=== PATIENT | female | born 1925 | race Caucasian/White ===

== ENCOUNTER 2017-02-16 13:30 | Inpatient (IN) | payer MEDICARE, OTHER ==
[~2017-02-16] VITALS: Ht 167.6 cm; Wt 82.1 kg
[2017-02-16] MEDS ORDERED: VALS80TA3 PO (13:51)
[2017-02-16] MEDS ORDERED: LEVO137T3 PO (13:51)
[2017-02-16] MEDS ORDERED: IBUP200C5 PO (13:51)
[2017-02-16] MEDS ORDERED: CHOL2000 PO (13:51)
[2017-02-16] MEDS ORDERED: FOLI0.4T2 PO (13:51)
[2017-02-16] MEDS ORDERED: HYDR25CA94 PO (13:51)
[2017-02-16] MEDS ORDERED: FENO145T13 PO (13:51)
[2017-02-16] MEDS ORDERED: GLIP10TA13 PO (13:51)
[2017-02-16] MEDS ORDERED: WARF4TAB7 PO (13:51)
[2017-02-16] MEDS ORDERED: METO25TA35 PO (13:51)
[2017-02-16] MEDS ORDERED: ATOR40TA78 PO (13:51)
[2017-02-16] MEDS ORDERED: HYDR12.53 PO (13:51)
[2017-02-16] MEDS ORDERED: OMEP-110 PO (13:51)
[2017-02-16] MEDS ORDERED: [UNRECOGNIZED DRUG - OTHER] PO (13:51)
[2017-02-16] MEDS ORDERED: AMLO5TAB2 PO (13:51)
[2017-02-16] MEDS ORDERED: ALLO300T PO (13:51)
[2017-02-16] MEDS ORDERED: PANTOPRAZOLE 80 MG in SODIUM CHLORIDE 0.9% 100 ML IV SCH ×2 (13:55→16:30)
[2017-02-16] MEDS ORDERED: PANTOPRAZOLE 80 MG in SODIUM CHLORIDE 0.9% 50 ML IVPB ONE (13:55)
[2017-02-16] MEDS ORDERED: SODIUM CHLORIDE FLUSH 10ML SYR IVF ONE (14:00)
[2017-02-16 14:31] LABS: HEMATOCRIT 29.1 % (34.6-47.8); HEMOGLOBIN 9.9 g/dL (11.7-16.4); WHITE BLOOD COUNT 7.2 x10^3/uL (3.4-10)
[2017-02-16 14:43] LABS: BLOOD UREA NITROGEN 58 mg/dL (7-18)
[2017-02-16 14:51] LABS: IS PT STATUS REG ER OR PRE ER? YES
[2017-02-16] MEDS ORDERED: MORPHINE SULFATE 4 MG/ML, 1ML IVPush PRN (16:30)
[2017-02-16] MEDS ORDERED: ONDANSETRON ODT 4 MG PO PRN (16:30)
[2017-02-16] MEDS ORDERED: ONDANSETRON 2MG/ML, 2ML IVPush PRN (16:30)
[2017-02-16] MEDS ORDERED: PHARMACY MAY ADJ FOR RENAL FX MC PRN (16:30)
[2017-02-16] MEDS: INSULIN ASPART 100 UNITS/ML, PEN SQ-INSULIN SCH ×2 (18:00→20:58)
[2017-02-16 21:09] LABS: HEMATOCRIT 28.8 % (34.6-47.8); HEMOGLOBIN 9.8 g/dL (11.7-16.4)
[2017-02-16 21:27] LABS: IS PT STATUS REG ER OR PRE ER? YES
[2017-02-16 22:03] VITALS: BP 163/51
[2017-02-17] MEDS: METOPROLOL TARTRATE 25 MG TABLET PO SCH ×3 (00:43→21:17)
[2017-02-17] MEDS: ATORVASTATIN 40 MG TABLET PO SCH ×2 (00:43→21:17)
[2017-02-17 01:14] VITALS: BP 157/66
[2017-02-17] MEDS: PANTOPRAZOLE 80 MG in SODIUM CHLORIDE 0.9% 100 ML IV SCH ×2 (02:33→16:46)
[2017-02-17 06:31] VITALS: BP 150/69
[2017-02-17 06:32] LABS: HEMATOCRIT 28.8 % (34.6-47.8); HEMOGLOBIN 9.6 g/dL (11.7-16.4); WHITE BLOOD COUNT 8.9 x10^3/uL (3.4-10)
[2017-02-17 06:42] LABS: BLOOD UREA NITROGEN 57 mg/dL (7-18)
[2017-02-17 06:45] LABS: ASPARTATE AMINO TRANSFERASE 34 U/L (15-37)
[2017-02-17 06:48] LABS: IS PT STATUS REG ER OR PRE ER? NO
[2017-02-17] MEDS: INSULIN ASPART 100 UNITS/ML, PEN SQ-INSULIN SCH ×4 (07:00→20:32)
[2017-02-17] MEDS: CHOLECALCIFEROL 1,000 UNIT TABLET PO SCH (09:00)
[2017-02-17] MEDS: ALLOPURINOL 300 MG TABLET PO SCH (09:00)
[2017-02-17] MEDS: FENOFIBRATE 145 MG TABLET PO SCH (09:00)
[2017-02-17] MEDS: FOLIC ACID 1 MG TABLET PO SCH (09:00)
[2017-02-17] MEDS ORDERED: AMLODIPINE 5 MG TABLET PO SCH ×2 (09:00→21:00)
[2017-02-17] MEDS ORDERED: VALSARTAN 80 MG TABLET PO SCH (09:00)
[2017-02-17] MEDS ORDERED: LEVOTHYROXINE 137 MCG TABLET PO SCH (09:00)
[2017-02-17 09:48] LABS: IS PT STATUS REG ER OR PRE ER? NO
[2017-02-17] MEDS ORDERED: PROPOFOL 10 MG/ML, 20ML ONE (12:15)
[2017-02-17 12:30] LABS: HEMATOCRIT 28.3 % (34.6-47.8); HEMOGLOBIN 9.5 g/dL (11.7-16.4)
[2017-02-17] MEDS ORDERED: OXYcodone 5 MG/5 ML ORAL.SOL UDC PO PRN (13:00)
[2017-02-17] MEDS ORDERED: LABETALOL 5MG/ML, 20ML IV PRN (13:00)
[2017-02-17] MEDS ORDERED: hydrALAzine 20 MG/ML, 1ML IV PRN ×2 (13:00)
[2017-02-17] MEDS ORDERED: ONDANSETRON 2MG/ML, 2ML IVPush PRN (13:00)
[2017-02-17] MEDS ORDERED: ALBUTEROL/IPRATROPIUM 2.5MG/0.5MG, 3 ML NPPB PRN (13:00)
[2017-02-17] MEDS ORDERED: FENTANYL PF 100 MCG/2ML IV PRN (13:00)
[2017-02-17] MEDS: D5%-0.45% NACL 1,000 ML IV SCH (14:37)
[2017-02-17 15:52] VITALS: BP_SYST 111; BP_SYST 120; BP_SYST 148; BP_DIAS 53; BP_DIAS 65; BP_DIAS 68
[2017-02-17 17:09] LABS: HEMATOCRIT 26.8 % (34.6-47.8); HEMOGLOBIN 8.9 g/dL (11.7-16.4)
[2017-02-17 20:37] VITALS: BP 159/61
[2017-02-17 21:25] LABS: HEMATOCRIT 25.9 % (34.6-47.8); HEMOGLOBIN 8.7 g/dL (11.7-16.4)
[2017-02-18] VITALS (7 sets, daily range): BP systolic 107–176; BP diastolic 51–65
[2017-02-18] MEDS: PANTOPRAZOLE 80 MG in SODIUM CHLORIDE 0.9% 100 ML IV SCH ×2 (03:57→16:43)
[2017-02-18] MEDS: D5%-0.45% NACL 1,000 ML IV SCH (03:57)
[2017-02-18] MEDS: LEVOTHYROXINE 137 MCG TABLET PO SCH (05:51)
[2017-02-18 06:01] LABS: HEMATOCRIT 26.1 % (34.6-47.8); HEMOGLOBIN 8.8 g/dL (11.7-16.4); WHITE BLOOD COUNT 7.6 x10^3/uL (3.4-10)
[2017-02-18 06:13] LABS: BLOOD UREA NITROGEN 48 mg/dL (7-18)
[2017-02-18 08:32] LABS: ASPARTATE AMINO TRANSFERASE 38 U/L (15-37)
[2017-02-18] MEDS: INSULIN ASPART 100 UNITS/ML, PEN SQ-INSULIN SCH ×4 (10:09→22:11)
[2017-02-18] MEDS: OMEPRAZOLE 20 MG CAPSULE.DR PO SCH (10:14)
[2017-02-18] MEDS: CHOLECALCIFEROL 1,000 UNIT TABLET PO SCH (10:14)
[2017-02-18] MEDS: CARVEDILOL 6.25 MG TABLET PO SCH ×2 (10:14→16:44)
[2017-02-18] MEDS: FOLIC ACID 1 MG TABLET PO SCH (10:14)
[2017-02-18] MEDS: FENOFIBRATE 145 MG TABLET PO SCH (10:15)
[2017-02-18] MEDS: ALLOPURINOL 300 MG TABLET PO SCH (10:15)
[2017-02-18 11:26] LABS: HEMATOCRIT 27.2 % (34.6-47.8)
[2017-02-18] MEDS ORDERED: CARV6.2512 PO (13:33)
[2017-02-18] MEDS ORDERED: AMLODIPINE 5 MG TABLET PO SCH (21:00)
[2017-02-18 21:21] LABS: HEMATOCRIT 27.5 % (34.6-47.8); HEMOGLOBIN 9.1 g/dL (11.7-16.4)
[2017-02-18] MEDS: ATORVASTATIN 40 MG TABLET PO SCH (22:10)
[2017-02-19 01:00] VITALS: BP 106/61
[2017-02-19] MEDS: PANTOPRAZOLE 80 MG in SODIUM CHLORIDE 0.9% 100 ML IV SCH (04:00)
[2017-02-19] MEDS: CARVEDILOL 6.25 MG TABLET PO SCH (06:00)
[2017-02-19 06:11] LABS: HEMATOCRIT 25.1 % (34.6-47.8); HEMOGLOBIN 8.4 g/dL (11.7-16.4)
[2017-02-19] MEDS: LEVOTHYROXINE 137 MCG TABLET PO SCH (06:33)
[2017-02-19] MEDS: INSULIN ASPART 100 UNITS/ML, PEN SQ-INSULIN SCH ×4 (07:00→20:57)
[2017-02-19 08:25] VITALS: BP 102/38
[2017-02-19] MEDS: SODIUM CHLORIDE 0.9% 1,000 ML IV SCH ×2 (08:58→15:35)
[2017-02-19] MEDS ORDERED: CEFAZOLIN PMX 1GM/50ML 50 ML IVPB ONE (09:00)
[2017-02-19] MEDS: FOLIC ACID 1 MG TABLET PO SCH (09:31)
[2017-02-19] MEDS: FENOFIBRATE 145 MG TABLET PO SCH (09:31)
[2017-02-19] MEDS: OMEPRAZOLE 20 MG CAPSULE.DR PO SCH (09:32)
[2017-02-19] MEDS: ALLOPURINOL 100 MG TABLET PO SCH (09:32)
[2017-02-19] MEDS: CHOLECALCIFEROL 1,000 UNIT TABLET PO SCH (09:32)
[2017-02-19 11:09] LABS: HEMATOCRIT 26.7 % (34.6-47.8)
[2017-02-19 14:06] VITALS: BP 118/60
[2017-02-19 15:47] LABS: HEMATOCRIT 26.8 % (34.6-47.8)
[2017-02-19 18:56] VITALS: BP 166/52
[2017-02-19] MEDS: ATORVASTATIN 40 MG TABLET PO SCH (20:57)
[2017-02-19 21:18] LABS: HEMATOCRIT 27.3 % (34.6-47.8); HEMOGLOBIN 9.1 g/dL (11.7-16.4)
[2017-02-20 00:25] VITALS: BP 112/46
[2017-02-20] MEDS: SODIUM CHLORIDE 0.9% 1,000 ML IV SCH ×4 (00:58→23:55)
[2017-02-20] MEDS: LEVOTHYROXINE 137 MCG TABLET PO SCH (04:55)
[2017-02-20 05:20] LABS: BLOOD UREA NITROGEN 52 mg/dL (7-18)
[2017-02-20 06:10] LABS: HEMATOCRIT 26.9 % (34.6-47.8); WHITE BLOOD COUNT 8.1 x10^3/uL (3.4-10)
[2017-02-20] MEDS: INSULIN ASPART 100 UNITS/ML, PEN SQ-INSULIN SCH ×4 (07:00→20:22)
[2017-02-20] MEDS: OMEPRAZOLE 20 MG CAPSULE.DR PO SCH (07:30)
[2017-02-20] MEDS ORDERED: FENTANYL PF 100 MCG/2ML ONE (07:51)
[2017-02-20] MEDS ORDERED: MIDAZOLAM 1 MG/ML, 5ML ONE (07:51)
[2017-02-20] MEDS ORDERED: LIDOCAINE 2%, 20ML ONE (07:52)
[2017-02-20] MEDS ORDERED: CEFAZOLIN 1,000 MG ONE (07:52)
[2017-02-20] MEDS ORDERED: CEFAZOLIN PMX 1GM/50ML 50 ML ONE (07:52)
[2017-02-20 09:00] VITALS: BP 149/75
[2017-02-20] MEDS: SODIUM CHLORIDE FLUSH 10ML SYR IVF SCH ×2 (09:00→20:23)
[2017-02-20] MEDS: FOLIC ACID 1 MG TABLET PO SCH (09:00)
[2017-02-20] MEDS: ALLOPURINOL 100 MG TABLET PO SCH (09:00)
[2017-02-20] MEDS ORDERED: ZOLPIDEM 5MG TABLET PO PRN (09:00)
[2017-02-20] MEDS: CHOLECALCIFEROL 1,000 UNIT TABLET PO SCH (09:00)
[2017-02-20 11:12] LABS: HEMATOCRIT 26.8 % (34.6-47.8); HEMOGLOBIN 8.9 g/dL (11.7-16.4)
[2017-02-20 14:00] VITALS: BP 162/74
[2017-02-20 18:41] VITALS: BP 158/54
[2017-02-20] MEDS: ATORVASTATIN 40 MG TABLET PO SCH (20:23)
[2017-02-20] MEDS: ACETAMINOPHEN 325 MG TABLET PO PRN (23:37)
[2017-02-21 01:59] VITALS: BP 153/63
[2017-02-21] MEDS: LEVOTHYROXINE 137 MCG TABLET PO SCH (04:58)
[2017-02-21] MEDS: ACETAMINOPHEN 325 MG TABLET PO PRN ×2 (04:58→22:28)
[2017-02-21 05:50] LABS: BLOOD UREA NITROGEN 40 mg/dL (7-18)
[2017-02-21] MEDS: INSULIN ASPART 100 UNITS/ML, PEN SQ-INSULIN SCH ×4 (07:00→20:48)
[2017-02-21] MEDS ORDERED: CEFAZOLIN PMX 1GM/50ML 50 ML IVPB ONE (08:00)
[2017-02-21] MEDS: SODIUM CHLORIDE 0.9% 1,000 ML IV SCH (08:58)
[2017-02-21 09:05] VITALS: BP 150/66
[2017-02-21] MEDS: OMEPRAZOLE 20 MG CAPSULE.DR PO SCH (09:13)
[2017-02-21] MEDS: FOLIC ACID 1 MG TABLET PO SCH (09:13)
[2017-02-21] MEDS: ALLOPURINOL 100 MG TABLET PO SCH (09:13)
[2017-02-21] MEDS: CHOLECALCIFEROL 1,000 UNIT TABLET PO SCH (09:13)
[2017-02-21] MEDS: SODIUM CHLORIDE FLUSH 10ML SYR IVF SCH ×2 (09:14→20:48)
[2017-02-21 14:07] VITALS: BP 157/124
[2017-02-21] MEDS: METOPROLOL TARTRATE 25 MG TABLET PO SCH (17:34)
[2017-02-21 17:35] VITALS: BP 148/65
[2017-02-21 17:52] LABS: PATH.CAST-FLAG NOT PRESENT; SPERM-FLAG NOT PRESENT; SRC-FLAG NOT PRESENT; XTAL-FLAG NOT PRESENT; YLC-FLAG NOT PRESENT
[2017-02-21 19:25] VITALS: BP 149/66
[2017-02-21] MEDS: ATORVASTATIN 40 MG TABLET PO SCH (20:49)
[2017-02-22 01:50] VITALS: BP 116/71
[2017-02-22] MEDS: METOPROLOL TARTRATE 25 MG TABLET PO SCH (05:14)
[2017-02-22] MEDS: LEVOTHYROXINE 137 MCG TABLET PO SCH (05:15)
[2017-02-22 05:41] LABS: BLOOD UREA NITROGEN 36 mg/dL (7-18)
[2017-02-22 05:44] LABS: TOTAL IRON BINDING CAPACITY 287 mcg/dL (250-450)
[2017-02-22] MEDS: INSULIN ASPART 100 UNITS/ML, PEN SQ-INSULIN SCH ×2 (07:00→11:41)
[2017-02-22] MEDS ORDERED: DOCU-131 PO (07:35)
[2017-02-22] MEDS ORDERED: ASCO500T6 PO (07:35)
[2017-02-22] MEDS ORDERED: FERR-36 PO (07:35)
[2017-02-22 08:00] VITALS: BP 145/78
[2017-02-22] MEDS ORDERED: FERROUS SULFATE 325 MG TABLET PO SCH (08:00)
[2017-02-22] MEDS ORDERED: ASCORBIC ACID 500 MG TABLET PO SCH (08:00)
[2017-02-22] MEDS: OMEPRAZOLE 20 MG CAPSULE.DR PO SCH (08:20)
[2017-02-22] MEDS: ALLOPURINOL 100 MG TABLET PO SCH (08:20)
[2017-02-22] MEDS: CHOLECALCIFEROL 1,000 UNIT TABLET PO SCH (08:20)
[2017-02-22] MEDS: SODIUM CHLORIDE FLUSH 10ML SYR IVF SCH (08:21)
[2017-02-22] MEDS: FOLIC ACID 1 MG TABLET PO SCH (08:21)
[2017-02-22] MEDS ORDERED: DOCUSATE 100 MG CAPSULE PO SCH (09:00)
== END 2017-02-22 13:50 | disposition home or self-care (01) | DRG 242 ==
LOC: OR 16:02 → EDIP 16:03 → OR 16:24 → 4EST 21:40 → 4WST 02-17 22:14 → 5SO 02-18 22:51 → DCLOUNGE 02-22 12:45
PROVIDERS: ADMIT Hospitalist; ATTEND Internal Medicine
PROC: 0DB68ZX Excision of Stomach, Via Natural or Artificial Opening Endoscopic, Diagnostic (ICD-10-PCS; principal; 2017-02-17 12:00)
PROC: 0JH606Z Insertion of Pacemaker, Dual Chamber into Chest Subcutaneous Tissue and Fascia, Open Approach (ICD-10-PCS; 2017-02-20)
PROC: 02HK3JZ Insertion of Pacemaker Lead into Right Ventricle, Percutaneous Approach (ICD-10-PCS; 2017-02-20)
PROC: 02H63JZ Insertion of Pacemaker Lead into Right Atrium, Percutaneous Approach (ICD-10-PCS; 2017-02-20)
DX: I44.0 Atrioventricular block, first degree (principal); K29.71 Gastritis, unspecified, with bleeding; N17.0 Acute kidney failure with tubular necrosis; E11.21 Type 2 diabetes mellitus with diabetic nephropathy; D68.59 Other primary thrombophilia; E11.22 Type 2 diabetes mellitus with diabetic chronic kidney disease; D62 Acute posthemorrhagic anemia; E03.9 Hypothyroidism, unspecified; E78.5 Hyperlipidemia, unspecified; Z66 Do not resuscitate; D50.9 Iron deficiency anemia, unspecified; D63.8 Anemia in other chronic diseases classified elsewhere; E66.9 Obesity, unspecified; I49.5 Sick sinus syndrome; Z68.29 Body mass index [BMI] 29.0-29.9, adult; I13.10 Hypertensive heart and chronic kidney disease without heart failure, with stage 1 through stage 4 chronic kidney disease, or unspecified chronic kidney disease; Z96.651 Presence of right artificial knee joint; K29.50 Unspecified chronic gastritis without bleeding; N18.9 Chronic kidney disease, unspecified; Z79.01 Long term (current) use of anticoagulants; Z79.4 Long term (current) use of insulin; Z79.84 Long term (current) use of oral hypoglycemic drugs; Z86.711 Personal history of pulmonary embolism; Z86.718 Personal history of other venous thrombosis and embolism; Z87.11 Personal history of peptic ulcer disease; Z87.891 Personal history of nicotine dependence; Z90.710 Acquired absence of both cervix and uterus; Z95.0 Presence of cardiac pacemaker; Z90.49 Acquired absence of other specified parts of digestive tract
CPT/HCPCS: 36415; 71010; 76770; 80048; 80053; 80061; 81001; 82040; 82436; 82550; 82570; 82962; 83540; 83550; 84133; 84300; 84484; 85014; 85018; 85025; 85610; 86677; 86850; 86900; 88305; 93005; 93306; 96365; J0690; J1815; J2250; J2704; J3010; J3490; C9113; J7030

== ENCOUNTER 2017-03-10 13:18 | Inpatient (IN) | payer MEDICARE ==
[~2017-03-10] VITALS: Ht 162.6 cm; Wt 83.8 kg
[~2017-03-10 13:18] MED LIST: ALLO300T PO; AMLO5TAB2 PO; ASCO500T6 PO; ATOR40TA78 PO; CARV6.2512 PO; CHOL2000 PO; DOCU-131 PO; FENO145T13 PO; FERR-36 PO; FOLI0.4T2 PO; GLIP10TA13 PO; HYDR12.53 PO; HYDR25CA94 PO; IBUP200C5 PO; LEVO137T3 PO; METO25TA35 PO; OMEP-110 PO; VALS80TA3 PO; WARF4TAB7 PO; [UNRECOGNIZED DRUG - OTHER] PO
[2017-03-10 15:15] VITALS: BP 141/71
[2017-03-10] MEDS ORDERED: FUROSEMIDE 20 MG/2 ML IV ONE (17:00)
[2017-03-10] MEDS ORDERED: POLYETHYLENE GLYCOL 17 GM PACKET PO PRN (17:30)
[2017-03-10] MEDS ORDERED: PLEASE ENTER HEIGHT AND WEIGHT MC SCH (17:30)
[2017-03-10] MEDS ORDERED: BISACODYL 10 MG SUPP PR PRN (17:30)
[2017-03-10] MEDS ORDERED: HYDROcodone/APAP 5/325 TABLET PO PRN (17:30)
[2017-03-10] MEDS ORDERED: NITROGLYCERIN 0.4 MG/SPRAY SL PRN (17:30)
[2017-03-10] MEDS ORDERED: hydrALAzine 20 MG/ML, 1ML IVPush PRN (17:30)
[2017-03-10] MEDS ORDERED: ONDANSETRON 2MG/ML, 2ML IVPush PRN (17:30)
[2017-03-10] MEDS ORDERED: ALBUTEROL SULFATE 2.5 MG/3 ML NPPB PRN (17:30)
[2017-03-10] MEDS ORDERED: ACETAMINOPHEN 325 MG TABLET PO PRN (17:30)
[2017-03-10] MEDS ORDERED: ONDANSETRON ODT 4 MG PO PRN (17:30)
[2017-03-10 20:01] VITALS: BP 131/73
[2017-03-10] MEDS: CEFTRIAXONE PMX 1GM/50ML 50 ML IV SCH (21:56)
[2017-03-10] MEDS: DOCUSATE 100 MG CAPSULE PO SCH (21:56)
[2017-03-10] MEDS: CARVEDILOL 6.25 MG TABLET PO SCH (21:56)
[2017-03-10] MEDS: ATORVASTATIN 40 MG TABLET PO SCH (21:56)
[2017-03-10] MEDS: HEPARIN 5,000 UNITS/ML, 1ML SQ SCH (21:57)
[2017-03-10] MEDS: methylPREDNISolone SOD SUCC 125 MG/2 ML IVPush SCH (21:57)
[2017-03-10 22:44] LABS: PATH.CAST-FLAG NOT PRESENT; SPERM-FLAG NOT PRESENT; SRC-FLAG NOT PRESENT; XTAL-FLAG NOT PRESENT; YLC-FLAG NOT PRESENT
[2017-03-11 00:30] VITALS: BP_SYST 134; BP_SYST 56; BP_DIAS 56
[2017-03-11] MEDS: methylPREDNISolone SOD SUCC 125 MG/2 ML IVPush SCH ×3 (03:08→17:39)
[2017-03-11 05:19] LABS: HEMATOCRIT 31.7 % (34.6-47.8); HEMOGLOBIN 10.2 g/dL (11.7-16.4); WHITE BLOOD COUNT 5.9 x10^3/uL (3.4-10)
[2017-03-11 05:38] LABS: ASPARTATE AMINO TRANSFERASE 28 U/L (15-37); BLOOD UREA NITROGEN 36 mg/dL (7-18)
[2017-03-11] MEDS: CARVEDILOL 6.25 MG TABLET PO SCH ×2 (06:18→16:08)
[2017-03-11] MEDS: HEPARIN 5,000 UNITS/ML, 1ML SQ SCH ×3 (06:18→19:43)
[2017-03-11 07:26] VITALS: BP 152/71
[2017-03-11] MEDS: DOCUSATE 100 MG CAPSULE PO SCH ×2 (08:14→19:44)
[2017-03-11] MEDS: OMEPRAZOLE 20 MG CAPSULE.DR PO SCH (08:44)
[2017-03-11] MEDS: FERROUS SULFATE 325 MG TABLET PO SCH ×2 (08:44→16:08)
[2017-03-11] MEDS: ASCORBIC ACID 500 MG TABLET PO SCH ×2 (08:44→16:08)
[2017-03-11] MEDS: ALLOPURINOL 300 MG TABLET PO SCH (08:45)
[2017-03-11] MEDS: FENOFIBRATE 145 MG TABLET PO SCH (08:45)
[2017-03-11] MEDS: LEVOTHYROXINE 137 MCG TABLET PO SCH (08:45)
[2017-03-11] MEDS ORDERED: DEXTROSE 50%, 50ML SYRINGE IVPush ONE (09:00)
[2017-03-11] MEDS ORDERED: INSULIN REGULAR 100 UNITS/ML, 3ML VIAL IVPush ONE (09:00)
[2017-03-11] MEDS ORDERED: CALCIUM GLUCONATE 4.6 MEQ in SODIUM CHLORIDE 0.9% 50 ML IV ONE (09:00)
[2017-03-11] MEDS ORDERED: SODIUM CHLORIDE 0.9% 1,000 ML IV SCH (09:48)
[2017-03-11] MEDS ORDERED: VANCOMYCIN PMX 1GM/200ML 200 ML IVPB ONE (10:00)
[2017-03-11] MEDS ORDERED: FUROSEMIDE 20 MG/2 ML IV ONE (10:00)
[2017-03-11 14:18] VITALS: BP 158/69
[2017-03-11] MEDS ORDERED: SODIUM POLYSTYRENE SULFONATE ORAL SUSP PO ONE (15:00)
[2017-03-11 18:46] LABS: BLOOD UREA NITROGEN 39 mg/dL (7-18)
[2017-03-11 19:31] VITALS: BP 135/59
[2017-03-11] MEDS: ATORVASTATIN 40 MG TABLET PO SCH (19:43)
[2017-03-11] MEDS: CEFTRIAXONE PMX 1GM/50ML 50 ML IV SCH (19:44)
[2017-03-12] MEDS: SODIUM CHLORIDE 0.9% 1,000 ML IV SCH ×3 (05:23→15:06)
[2017-03-12] MEDS: LEVOTHYROXINE 137 MCG TABLET PO SCH (05:24)
[2017-03-12] MEDS: CARVEDILOL 6.25 MG TABLET PO SCH ×2 (05:25→17:56)
[2017-03-12 05:26] VITALS: BP 152/68
[2017-03-12] MEDS: HEPARIN 5,000 UNITS/ML, 1ML SQ SCH ×3 (05:41→22:00)
[2017-03-12 05:45] LABS: HEMOGLOBIN 10.3 g/dL (11.7-16.4); WHITE BLOOD COUNT 12.5 x10^3/uL (3.4-10)
[2017-03-12 05:46] LABS: DIFF TOTAL CELLS COUNTED 100 CELL DIFF
[2017-03-12 05:56] LABS: BLOOD UREA NITROGEN 47 mg/dL (7-18)
[2017-03-12 06:07] LABS: VERIFY COUNTS? YES
[2017-03-12 06:08] LABS: ANISOCYTOSIS 1+; POLYCHROMASIA 1+
[2017-03-12 06:09] LABS: HYPOCHROMIA 2+; POIKILOCYTOSIS 1+
[2017-03-12 06:10] LABS: OVALOCYTES 1+
[2017-03-12 06:57] VITALS: BP 152/68
[2017-03-12] MEDS ORDERED: FENTANYL PF 100 MCG/2ML ONE (08:11)
[2017-03-12] MEDS ORDERED: MIDAZOLAM 1 MG/ML, 5ML ONE (08:11)
[2017-03-12] MEDS ORDERED: CEFAZOLIN PMX 1GM/50ML 50 ML ONE (08:11)
[2017-03-12] MEDS ORDERED: LIDOCAINE 2%, 20ML ONE (08:11)
[2017-03-12] MEDS ORDERED: CEFAZOLIN 1,000 MG ONE (08:11)
[2017-03-12] MEDS ORDERED: VANCOMYCIN 500 MG ONE (08:28)
[2017-03-12] MEDS ORDERED: VANCOMYCIN PMX 1GM/200ML 200 ML ONE (08:28)
[2017-03-12] MEDS ORDERED: ACETAMINOPHEN 325 MG TABLET PO PRN ×2 (10:00→18:30)
[2017-03-12] MEDS ORDERED: ZOLPIDEM 5MG TABLET PO PRN (10:00)
[2017-03-12] MEDS: DOCUSATE 100 MG CAPSULE PO SCH ×2 (11:36→20:27)
[2017-03-12] MEDS: ASCORBIC ACID 500 MG TABLET PO SCH ×2 (11:36→17:56)
[2017-03-12] MEDS: FERROUS SULFATE 325 MG TABLET PO SCH ×2 (11:37→17:56)
[2017-03-12] MEDS: ALLOPURINOL 300 MG TABLET PO SCH (11:37)
[2017-03-12] MEDS: OMEPRAZOLE 20 MG CAPSULE.DR PO SCH (11:38)
[2017-03-12] MEDS: FENOFIBRATE 145 MG TABLET PO SCH (11:38)
[2017-03-12 13:00] VITALS: BP 124/70
[2017-03-12] MEDS ORDERED: FUROSEMIDE 40 MG/4 ML IV ONE (16:00)
[2017-03-12] MEDS ORDERED: GUAIFENESIN 100 MG/5 ML, 10ML UDC PO PRN (16:00)
[2017-03-12] MEDS ORDERED: ONDANSETRON ODT 4 MG PO PRN (18:30)
[2017-03-12] MEDS ORDERED: ONDANSETRON 2MG/ML, 2ML IVPush PRN (18:30)
[2017-03-12] MEDS ORDERED: HYDROcodone/APAP 5/325 TABLET PO PRN (18:30)
[2017-03-12] MEDS ORDERED: hydrALAzine 20 MG/ML, 1ML IVPush PRN (18:30)
[2017-03-12] MEDS ORDERED: POLYETHYLENE GLYCOL 17 GM PACKET PO PRN (18:30)
[2017-03-12] MEDS ORDERED: NITROGLYCERIN 0.4 MG/SPRAY SL PRN (18:30)
[2017-03-12] MEDS ORDERED: BISACODYL 10 MG SUPP PR PRN (18:30)
[2017-03-12 19:19] VITALS: BP 145/65
[2017-03-12] MEDS: CEFTRIAXONE PMX 1GM/50ML 50 ML IV SCH (20:27)
[2017-03-12] MEDS: ATORVASTATIN 40 MG TABLET PO SCH (20:27)
[2017-03-12] MEDS: SODIUM CHLORIDE FLUSH 10ML SYR IVF SCH (20:28)
[2017-03-12] MEDS ORDERED: SODIUM CHLORIDE FLUSH 10ML SYR IVF SCH (21:00)
[2017-03-13 01:13] VITALS: BP 143/70
[2017-03-13 05:21] LABS: HEMATOCRIT 31.1 % (34.6-47.8); HEMOGLOBIN 10.1 g/dL (11.7-16.4); WHITE BLOOD COUNT 9.8 x10^3/uL (3.4-10)
[2017-03-13 05:25] LABS: BLOOD UREA NITROGEN 53 mg/dL (7-18)
[2017-03-13 05:37] VITALS: BP 153/70
[2017-03-13] MEDS: LEVOTHYROXINE 137 MCG TABLET PO SCH (05:39)
[2017-03-13] MEDS: CARVEDILOL 6.25 MG TABLET PO SCH ×2 (05:39→17:26)
[2017-03-13] MEDS: HEPARIN 5,000 UNITS/ML, 1ML SQ SCH ×3 (05:45→21:46)
[2017-03-13] MEDS ORDERED: VANCOMYCIN 50 MG/ML ORAL SUSP PO ONE (06:00)
[2017-03-13 07:41] VITALS: BP 145/69
[2017-03-13] MEDS: ASCORBIC ACID 500 MG TABLET PO SCH ×2 (08:20→17:26)
[2017-03-13] MEDS: FERROUS SULFATE 325 MG TABLET PO SCH ×2 (08:20→17:26)
[2017-03-13] MEDS: DOCUSATE 100 MG CAPSULE PO SCH ×3 (08:21→20:12)
[2017-03-13] MEDS: FENOFIBRATE 145 MG TABLET PO SCH (08:21)
[2017-03-13] MEDS: OMEPRAZOLE 20 MG CAPSULE.DR PO SCH (08:21)
[2017-03-13] MEDS: ALLOPURINOL 300 MG TABLET PO SCH (08:21)
[2017-03-13] MEDS: SODIUM CHLORIDE FLUSH 10ML SYR IVF SCH ×2 (08:21→20:11)
[2017-03-13] MEDS: FUROSEMIDE 40 MG/4 ML IV SCH (08:21)
[2017-03-13 13:30] VITALS: BP 126/57
[2017-03-13 19:27] VITALS: BP 148/66
[2017-03-13] MEDS: ATORVASTATIN 40 MG TABLET PO SCH (20:10)
[2017-03-13] MEDS: ACETAMINOPHEN 325 MG TABLET PO PRN (20:10)
[2017-03-14 01:35] VITALS: BP 156/78
[2017-03-14 05:02] LABS: BLOOD UREA NITROGEN 51 mg/dL (7-18); HEMATOCRIT 31.3 % (34.6-47.8); HEMOGLOBIN 10.3 g/dL (11.7-16.4); WHITE BLOOD COUNT 5.4 x10^3/uL (3.4-10)
[2017-03-14] MEDS: CARVEDILOL 6.25 MG TABLET PO SCH ×2 (06:17→18:04)
[2017-03-14] MEDS: LEVOTHYROXINE 137 MCG TABLET PO SCH (06:17)
[2017-03-14] MEDS: HEPARIN 5,000 UNITS/ML, 1ML SQ SCH ×2 (06:18→18:04)
[2017-03-14 07:05] VITALS: BP 144/71
[2017-03-14] MEDS: DOCUSATE 100 MG CAPSULE PO SCH ×3 (09:00→20:18)
[2017-03-14] MEDS: ALLOPURINOL 300 MG TABLET PO SCH (09:07)
[2017-03-14] MEDS: ASCORBIC ACID 500 MG TABLET PO SCH ×2 (09:07→18:08)
[2017-03-14] MEDS: OMEPRAZOLE 20 MG CAPSULE.DR PO SCH (09:07)
[2017-03-14] MEDS: FENOFIBRATE 145 MG TABLET PO SCH (09:07)
[2017-03-14] MEDS: SODIUM CHLORIDE FLUSH 10ML SYR IVF SCH (09:07)
[2017-03-14] MEDS: FERROUS SULFATE 325 MG TABLET PO SCH ×2 (09:07→18:04)
[2017-03-14] MEDS: FUROSEMIDE 40 MG/4 ML IV SCH (09:08)
[2017-03-14] MEDS: GUAIFENESIN 100 MG/5 ML, 10ML UDC PO PRN ×2 (09:09→20:15)
[2017-03-14 13:50] VITALS: BP 146/70
[2017-03-14 20:09] VITALS: BP 138/65
[2017-03-14] MEDS: ATORVASTATIN 40 MG TABLET PO SCH (20:15)
[2017-03-14] MEDS: ACETAMINOPHEN 325 MG TABLET PO PRN (20:15)
[2017-03-15] MEDS: HEPARIN 5,000 UNITS/ML, 1ML SQ SCH ×3 (01:19→17:33)
[2017-03-15 02:36] VITALS: BP 143/67
[2017-03-15 05:06] LABS: BLOOD UREA NITROGEN 50 mg/dL (7-18)
[2017-03-15] MEDS: CARVEDILOL 6.25 MG TABLET PO SCH ×2 (06:14→17:34)
[2017-03-15] MEDS: LEVOTHYROXINE 137 MCG TABLET PO SCH (06:14)
[2017-03-15] MEDS: SODIUM CHLORIDE FLUSH 10ML SYR IVF SCH ×2 (06:14→09:06)
[2017-03-15 08:45] VITALS: BP 125/73
[2017-03-15] MEDS: DOCUSATE 100 MG CAPSULE PO SCH ×2 (09:00→21:00)
[2017-03-15] MEDS: FUROSEMIDE 40 MG/4 ML IV SCH (09:05)
[2017-03-15] MEDS: FERROUS SULFATE 325 MG TABLET PO SCH ×2 (09:05→17:37)
[2017-03-15] MEDS: GUAIFENESIN 100 MG/5 ML, 10ML UDC PO PRN ×4 (09:05→21:16)
[2017-03-15] MEDS: ASCORBIC ACID 500 MG TABLET PO SCH ×2 (09:07→17:34)
[2017-03-15] MEDS: ALLOPURINOL 300 MG TABLET PO SCH (09:07)
[2017-03-15] MEDS: OMEPRAZOLE 20 MG CAPSULE.DR PO SCH (09:07)
[2017-03-15] MEDS: FENOFIBRATE 145 MG TABLET PO SCH (09:07)
[2017-03-15] MEDS ORDERED: FURO40TA6 PO (12:35)
[2017-03-15 15:09] VITALS: BP 145/71
[2017-03-15 17:43] VITALS: BP 143/61
[2017-03-15 19:54] VITALS: BP 147/72
[2017-03-15] MEDS: ATORVASTATIN 40 MG TABLET PO SCH (21:16)
[2017-03-16 01:17] VITALS: BP 130/55
[2017-03-16] MEDS: HEPARIN 5,000 UNITS/ML, 1ML SQ SCH (01:17)
[2017-03-16] MEDS: SODIUM CHLORIDE FLUSH 10ML SYR IVF SCH (01:17)
[2017-03-16] MEDS: LEVOTHYROXINE 137 MCG TABLET PO SCH (04:46)
[2017-03-16] MEDS: GUAIFENESIN 100 MG/5 ML, 10ML UDC PO PRN (04:46)
[2017-03-16] MEDS: CARVEDILOL 6.25 MG TABLET PO SCH (04:46)
[2017-03-16 06:48] VITALS: BP 112/62
[2017-03-16] MEDS: ASCORBIC ACID 500 MG TABLET PO SCH (07:10)
[2017-03-16] MEDS: OMEPRAZOLE 20 MG CAPSULE.DR PO SCH (07:10)
[2017-03-16] MEDS: FENOFIBRATE 145 MG TABLET PO SCH (07:10)
[2017-03-16] MEDS: ALLOPURINOL 300 MG TABLET PO SCH (07:11)
[2017-03-16] MEDS: DOCUSATE 100 MG CAPSULE PO SCH (07:11)
[2017-03-16] MEDS: FERROUS SULFATE 325 MG TABLET PO SCH (07:11)
[2017-03-16] MEDS ORDERED: FUROSEMIDE 40 MG TABLET PO SCH (09:00)
== END 2017-03-16 09:20 | DRG 260 ==
LOC: 5SO 15:18
PROVIDERS: ADMIT Family Medicine; ATTEND Family Medicine
PROC: 0T9B70Z Drainage of Bladder with Drainage Device, Via Natural or Artificial Opening (ICD-10-PCS; 2017-03-10)
PROC: 02WA3MZ Revision of Cardiac Lead in Heart, Percutaneous Approach (ICD-10-PCS; principal; 2017-03-12)
DX: T82.119A Breakdown (mechanical) of unspecified cardiac electronic device, initial encounter (principal); J96.01 Acute respiratory failure with hypoxia; I50.33 Acute on chronic diastolic (congestive) heart failure; N17.9 Acute kidney failure, unspecified; I13.0 Hypertensive heart and chronic kidney disease with heart failure and stage 1 through stage 4 chronic kidney disease, or unspecified chronic kidney disease; E11.22 Type 2 diabetes mellitus with diabetic chronic kidney disease; E87.5 Hyperkalemia; D53.9 Nutritional anemia, unspecified; D72.829 Elevated white blood cell count, unspecified; E03.9 Hypothyroidism, unspecified; E78.5 Hyperlipidemia, unspecified; I27.20 Pulmonary hypertension, unspecified; N18.9 Chronic kidney disease, unspecified; Y71.2 Prosthetic and other implants, materials and accessory cardiovascular devices associated with adverse incidents; Z86.711 Personal history of pulmonary embolism; Z66 Do not resuscitate; Z86.718 Personal history of other venous thrombosis and embolism; Z87.891 Personal history of nicotine dependence
CPT/HCPCS: 33215; 36415; 71010; 71020; 78582; 80048; 80053; 80069; 81001; 82040; 82306; 83735; 83880; 83970; 84100; 84132; 84145; 85025; 85379; 87040; 87070; 87086; 87205; 93005; 93306; 94640; 99156; 99157; J0610; J0690; J0696; J1644; J1815; J1940; J2250; J3010; J3370; J3490; J7613; A9540; A9558; C9898; J2930; J7030